=== PATIENT | male | born 1950 | race Caucasian/White ===

== ENCOUNTER 2019-08-18 22:24 | Emergency (ER) | payer MEDICARE, MEDICAID ==
[~2019-08-18] VITALS: Ht 160 cm; Wt 68.0 kg
[~2019-08-18 22:24] MED LIST: ACET-3161 PO; ALBU18HF2 IH; ENAL20TA PO; FLUT1DIS INH; MONT10TA24 PO; OMEP40CA34 PO
[2019-08-18] MEDS ORDERED: MORPHINE SULFATE 4 MG/ML CPJ (NOT FOR IM USE) IV STA (23:55)
[2019-08-18] MEDS ORDERED: ONDANSETRON HCL 4MG/2ML INJ IV STA (23:55)
[2019-08-19] MEDS ORDERED: DIPHENHYDRAMINE 50MG/ML VIAL IV ONE
[2019-08-19 00:32] LABS: BASOPHILS % 1.3 % (0.0-2.0); EOSINOPHILS % 6.1 % (0.0-5.0); HEMATOCRIT. 38.3 % (42.0-52.0); LYMPHOCYTES % 25.2 % (20.0-50.0); MEAN CORPUSCULAR HEMOGLOBIN 28.9 pg (28.0-32.0); MEAN CORPUSCULAR VOLUME 85.2 fL (80.0-94.0); MEAN PLATELET VOLUME 8.4 fl (7.4-10.4); MONOCYTES % 10.5 % (2.0-8.0); NEUTROPHILS % 56.9 % (40.0-76.0); PLATELET 189 x1000/uL (130-400); RED CELL DISTRIBUTION WIDTH 15.4 % (11.6-14.6)
[2019-08-19 00:37] LABS: CHLORIDE 105 mEq/L (98-107)
[2019-08-19 04:50] VITALS: BP 158/93
[2019-08-19] MEDS ORDERED: POTASSIUM CHLORIDE 20MEQ TABLET SR PO SCH (05:20)
== END 2019-08-19 04:48 | disposition home or self-care (01) ==
LOC: ER 22:24
DX: R51 Headache (principal); E87.6 Hypokalemia; E11.9 Type 2 diabetes mellitus without complications; J32.9 Chronic sinusitis, unspecified; I10 Essential (primary) hypertension; J45.909 Unspecified asthma, uncomplicated; Z96.649 Presence of unspecified artificial hip joint; Z98.890 Other specified postprocedural states; Z87.891 Personal history of nicotine dependence
CPT/HCPCS: 36415; 70450; 71045; 80053; 85025; 93005; 96374; 96375; 99284; J1200; J2270; J2405